=== PATIENT | female | born 1940 | race Caucasian/White ===

== ENCOUNTER 2022-07-12 12:39 | Outpatient (CLI) | payer MEDICARE, SELFPAY ==
--- NOTE | ~2022-07-12 | NM_ITS ---
EXAMINATION: IDALMIS samaniego renal scan DATE: 07/12/2022 15:43 INDICATION: Hydronephrosis TECHNIQUE: 7.9 mCi Tc-99m MAG3 was administered IV. 40 mg furosemide was administered IV immediately afterward. The patient was scanned in the supine position. A posterior abdominal radionuclide angiog minerva was obtained. A subsequent time course of static images of the kidneys, ureters, and bladder was obtained. COMPARISON: None FINDINGS: The posterior abdominal radionuclide angiogram and sequential static images show normal size, positio n, and morphology of the kidneys. Peak renal parenchymal uptake was 1.7 min in left kidney and 4.4 mi n in right kidney (normal peak 3-5 minutes). The relative early renal uptake was 47% on the left and 53% on the right (<40% is abnormal). There is hydronephrosis at the right renal pelvis on the delaye d images. No abnormalities of the ureters or bladder are seen. T1/2 for clearance of activity from the left kidney and proximal collecting system was 5.7 minutes. T1/2 for clearance of activity from the right kidney and proximal collecting system was 15.0 minutes. Notes on interpretation: T1/2 <10 minutes is normal, 10-15 minutes is low grade obstruction of questi onable clinical significance, 15-20 minutes is partial obstruction that is likely clinically signific ant, >20 minutes is high grade obstruction. Note that false positives may be seen with supine positio radha, dehydration, severely dilated nonobstructed kidney, atonic collecting system, poor renal functi on, and chronic furosemide use. IMPRESSION: 1. Symmetric kidney function. 2. Mild to moderately delayed activity clearance from the right kidney consistent with partial obstr uction that is likely borderline for clinical significance. Reviewed, dictated and finalized at location A. [employer] IMPRESSION: 1. Symmetric kidney function. 2. Mild to moderately delayed activity clearance from the right kidney consist ent with partial obstruction that is likely borderline for clinical significanc e.
== END 2022-07-12 12:40 | disposition home or self-care (01) ==
PROVIDERS: PCP Nurse Practitioner; Visit Provider Nurse Practitioner Family
DX: N13.30 Unspecified hydronephrosis (principal)
CPT/HCPCS: 78708; A9562; J1940

== ENCOUNTER 2022-08-09 10:54 | Emergency (ER) | payer MEDICARE, SELFPAY ==
[2022-08-09] VITALS (10 sets, daily range): BP systolic 114–144; BP diastolic 58–126; PULSE 71–86; RESP 14–27; TEMP 36.7; O2SAT 93–99
--- NOTE | ~2022-08-09 | CT_ITS ---
EXAMINATION: CT abdomen pelvis w con DATE: 08/09/2022 12:03 INDICATION: Blood in stool. TECHNIQUE: Computed tomography (CT) of the abdomen and pelvis was performed with 100 mL Omnipaque 350 intravenous contrast. Automated exposure control and iterative reconstruction technique were employe d. The dose-length product was 328.96 mGy-cm. COMPARISON: Lasix renal scan 07/12/2022 FINDINGS: The visualized portions of the lung bases demonstrate mild atelectasis and mild chronic int erstitial lung disease. No pleural effusion. The heart size is normal. There are coronary artery calc ifications. No pericardial effusion. There is mild pectus excavatum. The liver is normal. There are g allstones in the gallbladder, which is normal in size. The spleen, pancreas, and adrenal glands are n ormal. There is mild right hydronephrosis with transition at the ureteropelvic junction. There are cy sts in left kidney measuring up to 1.3 cm. Stool distends the rectum. There are scattered diverticula in the colon. The appendix is normal. There are no pathologically enlarged lymph nodes. There is no free intraperitoneal fluid. There is severe lumbar spondylosis. IMPRESSION: 1. Stool distends the rectum. 2. Chronic mild right hydronephrosis. Reviewed, dictated and finalized at location A. [employer]
[2022-08-09 11:16] LABS: Basophils Percent Auto 0.2 % (0.2-1.2); Eosinophils Percent Auto 0.1 % (0-4.4); Hematocrit 40.3 % (37.0-47.0); Hemoglobin 13.9 g/dL (12.0-15.0); Immature Granulocyte Absolute 0.06 K/mm3 (0.00-0.031); Immature Granulocyte Percent A 0.4 % (0-0.5); Lymphocytes Absolute Auto 1.03 K/mm3 (0.9-3.2); Lymphocytes Percent Auto 6.4 % (18.3-44.2); Mean Corpuscular HGB Conc 34.5 g/dl (32-36); Mean Corpuscular Hemoglobin 31.2 pg (26-34); Mean Corpuscular Volume 90.4 fl (80-100); Mean Platelet Volume 10.6 fl (7.4-10.4); Monocytes Absolute Auto 1.1 K/mm3 (0.1-0.6); Neutrophils Absolute Auto 13.8 K/mm3 (1.3-6.7); Neutrophils Percent Auto 85.9 % (45.5-73.1); Platelet Count Result 278 k/mm3 (150-375); Red Blood Count 4.46 M/mm3 (4.2-5.4); Red Cell Distribution Width 12.9 % (11.5-14.5); White Blood Count 16.1 K/mm3 (4.5-10.0)
[2022-08-09 11:26] LABS: INR 1.1; Prothrombin Time 14.2 Seconds (11.1-14.7)
[2022-08-09 11:27] LABS: Partial Thromboplastin Time 28.6 SECONDS (22.3-36.8)
[2022-08-09 11:37] LABS: Lactic Acid Reflex 2.8 mmol/L (0.7-2.0)
[2022-08-09 11:38] LABS: Alanine Aminotransferase 31 U/L (6-35); Albumin Level 4.6 g/dL (3.5-5.1); Alkaline Phosphatase 62 U/L (38-126); Anion Gap 10 mmol/L (8-16); Aspartate Amino Transferase 27 U/L (14-36); Bilirubin,Total 0.6 mg/dL (0.2-1.3); Blood Urea Nitrogen 14 mg/dL (7-17); Carbon Dioxide 21 mmol/L (22-30); Chloride 96 mmol/L (98-107); Estimated Glomerular Filt Rate > 60; Glucose 187 mg/dL (65-110); Lipase 39 U/L (23-300); Potassium 3.8 mmol/L (3.4-5.0); Sodium 127 mmol/L (137-145)
--- NOTE | 2022-08-09 12:07 | ED.GENADULT ---
HPI - General Adult General Chief complaint: Abdominal Pain Stated complaint: bright red blood in stool Time Seen by Provider: 08/09/22 10:58 History of Present Illness HPI narrative: 81-year-old female presenting to the emergency department for evaluation of blood in her stool. Patient had reported abdominal pain earlier but during my examination patient declined any abdominal pain. Patient states she has never had any GI bleeding. Patient does have history of dementia and is ANO x1 at her baseline. Related Data Allergies Allergy/AdvReac Type Severity Reaction Status Date / Time No Known Allergies Allergy Mild Unverified 08/31/16 21:45 Review of Systems Review of Systems: CONSTITUTIONAL: Denies fever, chills, or sweats. EYES: Denies visual changes, redness, or discharge. ENT: Denies rhinorrhea, congestion, sore throat, or otalgia. CARDIOVASCULAR: Denies chest pain, palpitations, or edema. RESPIRATORY: Denies cough or dyspnea. GASTROINTESTINAL: HPI GENITOURINARY: Denies dysuria or hematuria. SKIN: Denies rash or itching. MUSCULOSKELETAL: Denies back pain, joint pain, or myalgia. NEUROLOGIC: Denies headache, numbness, or weakness. Exam Narrative: APPEARANCE: Well appearing, no pain, no distress, well-nourished. HEAD: normocephalic, atraumatic. EYES: PERRLA/EOMI, conjunctivae clear. NOSE: Normal no drainage NECK: Supple. No adenopathy, no masses. RESPIRATORY: Airway patent, respirations nonlabored. Clear to auscultation bilaterally, no rales, rhonchi, wheezing. CARDIOVASCULAR: Regular rate and rhythm without murmurs rubs or gallops. ABDOMINAL: Soft, nontender, nondistended, normal bowel sounds Rectal: Patient was Hemoccult negative with brown stool. Some rectal skin irritation with no active bleeding MUSCULOSKELETAL: Moves all extremities. Strength/ROM intact, No edema, No calf tenderness. NEURO: Alert. Cranial nerves II through XII intact. Grossly intact SKIN: Warm, dry. Normal Color Course Course Emergency Course: Patient is afebrile but does have a leukocytosis of 16.1. Patient had an elevated lactic acid of 2.8 and was hyponatremic at 127. Patient was treated with 2 L of normal saline. Patient had no abdominal tenderness to palpation but a CT scan was ordered due to her reported dementia and the elevated lactic acid. No acute abnormality was seen on the CT. Patient does have constipation and was treated with a fleets enema with success. 2:53 PM patient did have response to the fleets enema. UA showed no evidence of urinary tract infection. Patient was Hemoccult negative. Patient was treated with 2 L of normal saline. Patient reports she does feel improved. Vital Signs Vital signs: Vital Signs Temperature 98.1 F 08/09/22 10:59 Pulse Rate 79 08/09/22 10:59 Respiratory Rate 24 H 08/09/22 10:59 Blood Pressure 137/76 08/09/22 10:59 Pulse Oximetry 94 08/09/22 10:59 Oxygen Delivery Room Air 08/09/22 10:59 Temperature 98.1 F 08/09/22 10:59 Pulse Rate 86 08/09/22 18:22 Respiratory Rate 14 08/09/22 18:22 Blood Pressure 144/84 H 08/09/22 18:22 Pulse Oximetry 98 08/09/22 18:22 Oxygen Delivery Room Air 08/09/22 10:59 Medical Decision Making Vital Signs Vital Signs: Vital Signs Temperature 98.1 F 08/09/22 10:59 Pulse Rate 79 08/09/22 10:59 Respiratory Rate 24 H 08/09/22 10:59 Blood Pressure 137/76 08/09/22 10:59 Pulse Oximetry 94 08/09/22 10:59 Oxygen Delivery Room Air 08/09/22 10:59 Temperature 98.1 F 08/09/22 10:59 Pulse Rate 86 08/09/22 18:22 Respiratory Rate 14 08/09/22 18:22 Blood Pressure 144/84 H 08/09/22 18:22 Pulse Oximetry 98 08/09/22 18:22 Oxygen Delivery Room Air 08/09/22 10:59 Lab Data Lab results reviewed: Yes I reviewed the patient's lab results. 08/09/22 11:10 08/09/22 11:10 Labs: Lab Results 08/09/22 08/09/22 08/09/22 Range/Units 11:10 11:10 11:10 WBC 16.1 H
[2022-08-09] MEDS: SODIUM CHLORIDE 0.9% IV 1,000 ML 999 ML IV CONT ×2 (13:42→14:55)
[2022-08-09 14:16] LABS: Reflex Lactic Acid Yes or No Add Lactic
[2022-08-09 14:47] LABS: Appearance Urine Clear (Clear); Bilirubin Urine Negative (Negative); Blood Urine Trace-intact (Negative); Color Urine Yellow (Yellow); Glucose Urine UA Negative (Negative); Ketones Urine Negative (Negative); Leukocyte Esterase Ur Negative LEU/UL (Negative); Nitrate Urine Negative (Negative); Protein Urine 2+ mg/dL (Negative); Specific Grav Ur 1.015 (1.001-1.035); Urobilinogen Urine 0.2 mg/dL (<2.0)
[2022-08-09 14:58] LABS: Mucus Urine Rare /lpf; WBC Urine 0-3 /hpf
[2022-08-09 15:04] LABS: Lactic Acid 1.8 mmol/L (0.7-2.0)
[2022-08-09 15:12] LABS: Add Urine Microscopic? YES
== END 2022-08-09 18:24 ==
PROVIDERS: Emergency Provider Emergency Medicine; PCP Nurse Practitioner
DX: K59.00 Constipation, unspecified (principal); E87.1 Hypo-osmolality and hyponatremia
CPT/HCPCS: 36415; 74177; 80053; 81001; 83605; 83690; 85025; 85610; 85730; 86850; 86900; 86901; 96360; 96361; 99284; J7030; Q9967